=== PATIENT | male | born 1985 | race Caucasian/White ===

== ENCOUNTER 2022-11-08 20:25 | Emergency (ER) | payer MEDICAID ==
[~2022-11-08] VITALS: Ht 182.9 cm; Wt 103.0 kg
[2022-11-08] MEDS ORDERED: LORazepam 2 MG/ML 1ML VIAL IV STA ×2 (20:31→22:38)
[2022-11-08] MEDS ORDERED: LORazepam 2 MG/ML 1ML VIAL As Ordered ONE (20:33)
[2022-11-08] MEDS ORDERED: HYDROMORPHONE HCL 0.5 MG/ 0.5 ML SYRINGE IV ONE (20:40)
[2022-11-08] MEDS ORDERED: WARF-23 PO (20:45)
[2022-11-08] MEDS ORDERED: GABA-283 PO (20:46)
[2022-11-08] MEDS ORDERED: SERO1TAB PO (20:47)
[2022-11-08] MEDS ORDERED: XANA0.25 PO (20:47)
[2022-11-08] MEDS ORDERED: TRAZ-257 PO (20:48)
[2022-11-08] MEDS ORDERED: BUPR1FIL SL (20:49)
[2022-11-08] MEDS ORDERED: CLON0.1D3 TD (20:50)
[2022-11-08] MEDS ORDERED: OMEP-173 PO (20:51)
[2022-11-08 21:22] LABS: HEMATOCRIT 42.4 % (42.0-52.0); HEMOGLOBIN 14.6 g/dl (13.5-17.5); MEAN CORPUSCULAR HEMOGLOBIN 32.7 pg (27.0-33.0); MEAN CORPUSCULAR HGB CONC 34.4 g/dl (32.0-36.5); MEAN CORPUSCULAR VOLUME 94.9 fl (80.0-96.0); PLATELET COUNT, AUTOMATED 253 10^3/uL (150-450); RED BLOOD COUNT 4.47 10^6/uL (4.30-6.10)
[2022-11-08] MEDS ORDERED: BOOSTRIX VACCINE (TETANUS/DIPHTH/ACEL. PERTUSSIS) 0.5ML SYR IM.IMMUN ONE (21:25)
[2022-11-08] MEDS ORDERED: CLINDAMYCIN 600 MG in IV 1 EA IV ONE (21:25)
[2022-11-08] MEDS ORDERED: NS 1,000 ML IV SCH (21:30)
[2022-11-08] MEDS ORDERED: VANCOMYCIN HCL 2,000 MG in D5W 500 ML IV ONE (21:35)
[2022-11-08] MEDS: HYDROMORPHONE HCL 0.5 MG/ 0.5 ML SYRINGE IV PRN ×2 (21:39→22:11)
[2022-11-08 21:55] LABS: ETHYL ALCOHOL (ETHANOL) 0.005 % (0.000-0.010)
[2022-11-08 21:56] LABS: ACETAMINOPHEN LEVEL < 2.0 UG/ML (10.0-20.0); SALICYLATE LEVEL 5.8 MG/DL (<30)
[2022-11-08 21:59] LABS: ALBUMIN 4.4 G/DL (3.2-5.2); ALKALINE PHOSPHATASE 71 U/L (46-116); ALT/SGPT 21 U/L (7.0-40); AST/SGOT 24 U/L (<34); BILIRUBIN,DIRECT 0.2 MG/DL (<0.4); BILIRUBIN,TOTAL 0.7 MG/DL (0.3-1.2); BLOOD UREA NITROGEN 10 MG/DL (9-23); CALCIUM LEVEL 9.7 MG/DL (8.5-10.1); CARBON DIOXIDE LEVEL 23 MMOL/L (20-31); CHLORIDE LEVEL 104 MMOL/L (98-107); CREATININE FOR GFR 0.74 MG/DL (0.70-1.30); GLOMERULAR FILTRATION RATE > 60.0 (>60); GLUCOSE, FASTING 83 MG/DL (60-100); POTASSIUM SERUM 4.1 MMOL/L (3.5-5.1); SODIUM LEVEL 138 MMOL/L (136-145); THYROID STIMULATING HORMONE 0.886 uIU/ML (0.55-4.78); TOTAL PROTEIN 7.1 G/DL (5.7-8.2)
[2022-11-08] MEDS ORDERED: VANCOMYCIN HCL 1,000 MG, VIAL MATE ADAPTER 1 EACH in D5W 250 ML IV ONE ×6 (22:00)
[2022-11-08 22:14] LABS: INR 2.41; PROTHROMBIN TIME 26.6 SECONDS (12.5-14.5)
[2022-11-08] MEDS ORDERED: ALPR1TAB3 PO (23:38)
[2022-11-08] MEDS ORDERED: TRAZ300T2 PO (23:38)
[2022-11-08] MEDS ORDERED: CLONI1TA PO (23:38)
[2022-11-08] MEDS ORDERED: CLON-412 PO (23:38)
[2022-11-08] MEDS ORDERED: GABA800T4 PO (23:38)
[2022-11-08] MEDS ORDERED: QUET100T2 PO (23:38)
[2022-11-08] MEDS ORDERED: AMIT25TA17 PO (23:38)
[2022-11-08] MEDS ORDERED: med rec comment (23:40)
[2022-11-08] MEDS ORDERED: HOME MED LIST COMPLETE! XX SCH (23:45)
[2022-11-09] MEDS ORDERED: KETAMINE HCL 20 MG in NS 50 ML IV ONE ×2
[2022-11-09] MEDS ORDERED: LORazepam 2 MG/ML 1ML VIAL IV STA (00:21)
[2022-11-09 00:22] VITALS: BP 161/72; TEMP 98; O2SAT 100
[2022-11-09] MEDS ORDERED: HYDROMORPHONE HCL 0.5 MG/ 0.5 ML SYRINGE IV ONE ×2 (00:25)
== END 2022-11-09 00:43 | disposition short-term general hospital (02) ==
LOC: M ED 20:25
DX: S66.128A Laceration of flexor muscle, fascia and tendon of other finger at wrist and hand level, initial encounter (principal); S65.012A Laceration of ulnar artery at wrist and hand level of left arm, initial encounter; T14.91XA Suicide attempt, initial encounter; Y92.89 Other specified places as the place of occurrence of the external cause; Y93.89 Activity, other specified; Y99.8 Other external cause status; F32.A Depression, unspecified; G43.909 Migraine, unspecified, not intractable, without status migrainosus; Z88.0 Allergy status to penicillin; Z79.01 Long term (current) use of anticoagulants; Z79.899 Other long term (current) drug therapy
CPT/HCPCS: 73110; 80048; 80076; 80143; 82077; 84443; 85027; 85610; 87635; 90715; 96365; 96367; 96375; 96376; 99285; J1170; J2060